=== PATIENT | female | born 1985 | race Caucasian/White ===

== ENCOUNTER 2019-05-08 18:43 | Emergency (ER) | payer SELFPAY ==
[~2019-05-08] VITALS: Ht 165.1 cm; Wt 90.7 kg
[~2019-05-08 18:43] MED LIST: ACET12.5 PO; ACET500T33 PO
--- NOTE | 2019-05-08 20:14 | PHYS DOC ---
Past Medical History Past Medical History: Hypertension Past Surgical History: Tubal ligation Additional Past Surgical Histo: hernia, d and c Smoking: Cigarettes, Less than 1pk/day Alcohol Use: None Drug Use: None Adult General Chief Complaint Chief Complaint: FLU SYMPTOM HPI HPI Patient is a 34 year old female who presents to the emergency department with complaints of dry cough, headache, sore throat, nasal congestion, and tactile fevers that have been intermittent for the last 3 weeks. PT states she has a hx of htn, she denies any vision changes, numbness, tingling, weakness, chest pain, syncope, or dizziness. 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 Pt currently rates her discomfort a 8 out of 10 on the pain scale she denies any alleviating or exacerbating factors. All other ROS is neg unless otherwise noted in HPI. Review of Systems Review of Systems See Above Current Medications Current Medications Current Medications Medications (Trade) Dose Ordered Sig/Hever Start Time Stop Time Status Last Admin Dose Admin Clonidine HCl (Catapres) 0.1 mg 1X ONCE 05/08/19 20:30 05/08/19 20:31 Allergies Allergies Allergies Coded Allergies Type Severity Reaction Last Updated Verified No Known Drug Allergies 05/12/13 No Physical Exam Physical Exam See Above Constitutional: Well developed, well nourished, no acute distress, non-toxic appearance. [] HENT: Normocephalic, atraumatic, bilateral external ears normal, bilateral TMs normal, cobblestone appearance of posterior pharynx, oropharynx moist, no oral exudates, [place] turbinates are edematous and erythematous bilaterally Eyes: PERRLA, EOMI, conjunctiva normal, no discharge. [] Neck: Normal range of motion, no tenderness, supple, no stridor. [] Cardiovascular:Heart rate regular rhythm, no murmur [] Lungs & Thorax: Bilateral breath sounds clear to auscultation [] Skin: Warm, dry, no erythema, no rash. [] Back: No tenderness Extremities: No cyanosis, ROM intact, no edema. [] Neurologic: Alert and oriented X 3, no focal deficits noted. [] Psychologic: Affect normal, judgement normal, mood normal. [] Current Patient Data Vital Signs Vital Signs Date Time Temp Pulse Resp B/P (MAP) Pulse Ox O2 Delivery O2 Flow Rate FiO2 05/08/19 19:24 98.1 77 16 167/111 (129) 98 Room Air 98.1 EKG EKG [] Radiology/Procedures Radiology/Procedures [] Course & Med Decision Making Course & Med Decision Making Pertinent Labs and Imaging studies reviewed. (See chart for details) Patient is 34-year-old female presented to the emergency room multiple complaints. She was prescribed Flonase nasal spray and Tessalon Perles for rhinitis, URI and cough symptoms. The patient was given 0.1 g of clonidine in the ER for high blood pressure. Prescription was written for hydrochlorothiazide 25 mg tablets. Patient was instructed to follow-up with her primary care doctor for further management of her hypertension. Encouraged patient to stop smoking and avoid airway irritants. Patient verbalized an understanding of home care, medications, follow-up, and return to ED instructions and was in agreement with the plan of care. [] Dragon Disclaimer Dragon Disclaimer This electronic medical record was generated, in whole or in part, using a voice recognition dictation system. Departure Departure Impression: Primary Impression: Essential (primary) hypertension Additional Impressions: Allergic rhinitis URI (upper respiratory infection) Cough Medication refill Disposition: HOME, SELF-CARE Condition: STABLE Referrals: NO PCP (PCP) Patient Instructions: Allergic Rhinitis, Cough, Adult, [id number], Hypertension, Upper Respiratory Infection, Adult, [id number] Additional Instructions: Fill prescription(s) and use as directed. Recommend use of a Cool mist humidifier in room at bedtime. Alternate Tylenol or ibuprofen as needed for pain/fever. Increase clear fluids. Avoid airway triggers such as smoke, fragrance, dust, and pollen. May take [id number] cough suppressants as needed. Follow-up with your primary care doctor if symptoms persist, return to the ER if symptoms worsen. Scripts Benzonatate (TESSALON PERLE) 100 Mg Capsule 100 MG PO TID PRN for COUGH for 7 Days, #21 CAP 0 Refills Prov: EUNICE RIBERA [employer] 05/08/19 Hydrochlorothiazide (HYDROCHLOROTHIAZIDE TABLET ) 25 Mg Tablet 25 MG PO DAILY for DIURETIC for 30 Days, #30 TAB 0 Refills Prov: EUNIEC RIBERA [employer] O[employer] 12/6/19 Fluticasone Propionate (Flonase Allergy Relief) 9.9 Ml [place].susp 2 SPRAYS NS DAILY for 30 Days, #1 BOTTLE 0 Refills Prov: EUNICE RIBERA APRN 05/08/19 Problem Qualifiers Additional Impressions: Allergic rhinitis Allergic rhinitis trigger: unspecified Allergic rhinitis seasonality: unspecified Qualified Codes: J30.9 - Allergic rhinitis, unspecified URI (upper respiratory infection) URI type: unspecified URI Qualified Codes: J06.9 - Acute upper respiratory infection, unspecified EUNICE RIBERA [employer] O[employer] May 08, 2019 20:14
[2019-05-08 20:20] VITALS: BP 175/117
[2019-05-08] MEDS ORDERED: HYDR-2145 PO (20:22)
[2019-05-08] MEDS ORDERED: BENZ100C PO (20:22)
[2019-05-08] MEDS ORDERED: FLUT9.9S NS (20:22)
[2019-05-08] MEDS ORDERED: cloNIDine HCL 0.1 MG TABLET PO ONE (20:30)
== END 2019-05-08 20:31 | disposition home or self-care (01) ==
LOC: ER 18:43
DX: I10 Essential (primary) hypertension (principal); J06.9 Acute upper respiratory infection, unspecified; J30.9 Allergic rhinitis, unspecified; R50.9 Fever, unspecified; J02.9 Acute pharyngitis, unspecified; F17.210 Nicotine dependence, cigarettes, uncomplicated; Z98.51 Tubal ligation status; Z98.890 Other specified postprocedural states; Z76.0 Encounter for issue of repeat prescription
CPT/HCPCS: 99283